=== PATIENT | male | born 1950 | race African-American/Black ===

== ENCOUNTER 2017-03-16 17:54 | Emergency (ER) | payer OTHER ==
[~2017-03-16] VITALS: Ht 190.5 cm; Wt 85.9 kg
[2017-03-16 18:51] LABS: HEMATOCRIT 34.6 % (38.0-50.0); MCH 28.2 PG (29.0-34.0); MCHC 33.2 G/DL (30.0-36.0); MCV 84.8 FL (86-99); MEAN PLAT.VOLUME 10.2 uM^3 (9.0-12.4); PLATELET COUNT 171 K/uL (156-360); RBC DIS.WIDTH-CV 13.2 % (11.8-14.6); RED BLOOD COUNT 4.08 M/uL (4.00-5.50); WHITE BLOOD COUNT 5.7 K/uL (4.1-10.2)
[2017-03-16 18:59] LABS: CHLORIDE 106 mEq/L (99-109); POTASSIUM 3.8 mEq/L (3.7-5.4); SODIUM 137 mEq/L (136-147)
[2017-03-16 19:00] LABS: ADD MIUA? YES; BILIRUBIN NEGATIVE; BLOOD LARGE; COLOR YELLOW ((YELLOW)); GLUCOSE (STRIP) 150; KETONES NEGATIVE; LEUKOCYTES LARGE; NITRITE NEGATIVE; PROTEIN (STRIP) 100; SPECIFIC GRAVITY 1.024 (1.000-1.030); UROBILINOGEN 0.2 MG/DL (0.2-1.0)
[2017-03-16 19:03] LABS: ANION GAP 10 MEQ/L (2-14); TOTAL BILIRUBIN 0.3 mg/dL (0.0-1.0)
[2017-03-16 19:05] LABS: ALKALINE PHOSPHATASE 101 IU/L (3-129); GFR ESTIMATE (CALCULATED) 56 mL/min/
[2017-03-16 19:06] LABS: UREA NITROGEN (BUN) 16 mg/dL (9-23)
[2017-03-16 19:12] LABS: GLUCOSE 421 mg/dL (70-99)
[2017-03-16 19:41] LABS: RED BLOOD CELLS TNTC /HPF (0-5); WHITE BLOOD CELLS TNTC /HPF (0-5)
[2017-03-16 19:42] LABS: BACTERIA 1+ /HPF; CASTS NONE SEEN /LPF; CRYSTALS NONE SEEN; EPITHELIAL CELLS RARE /HPF; MUCUS RARE /LPF; UCUL ADDED? YES
[2017-03-16 19:57] LABS: LIPASE < 3 U/L (1.0-51.0)
[2017-03-16] MEDS ORDERED: KEFLEX500 MG PO (21:21)
[2017-03-16 22:08] LABS: POINT-OF-CARE METER ID UU14100415
[2017-03-16 22:38] VITALS: BP 150/92
== END 2017-03-16 22:43 | disposition home or self-care (01) ==
LOC: EME 17:54
PROVIDERS: Emergency Medicine
DX: N39.0 Urinary tract infection, site not specified (principal); R31.9 Hematuria, unspecified; E11.9 Type 2 diabetes mellitus without complications; F17.200 Nicotine dependence, unspecified, uncomplicated
CPT/HCPCS: 74177; 80053; 81003; 82948; 83690; 85027; 87086; 99281; 99285; J0696; J7030; J7050